=== PATIENT | male | born 1965 | race Caucasian/White ===

== ENCOUNTER 2023-04-16 09:25 | Day surgery (SDC) | payer BC ==
[~2023-04-16 09:25] MED LIST: Sodium Chloride 0.9% 1,000 ML IV SCH
[2023-04-16] MEDS ORDERED: Propofol 200 MG/20 ML SDV ONE ×2 (10:42→12:15)
[2023-04-16] MEDS ORDERED: Midazolam 1 MG/ML 2 ML SDV ONE (10:42)
[2023-04-16] MEDS ORDERED: fentaNYL 50 MCG/ML SDV ONE (10:42)
== END 2023-04-16 13:39 | disposition home or self-care (01) ==
LOC: JP.SDS 09:25
PROVIDERS: ATTEND Surgery
DX: Z12.11 Encounter for screening for malignant neoplasm of colon (principal); K63.5 Polyp of colon; K64.8 Other hemorrhoids
CPT/HCPCS: 45380; J2250; J2704; J3010